=== PATIENT | female | born 1995 | race African-American/Black ===

== ENCOUNTER 2016-09-22 19:39 | Emergency (ER) | payer OTHER ==
[2016-09-22 19:49] VITALS: BP 100/65
--- NOTE | 2016-09-22 20:19 | UC ---
Complaint Female HPI - HPI Summary HPI Summary: Vulvar itching, vaginal discharge, occ cheesy odor. The itching reminds her of prior yeast infections, the discharge is like BV but she does not have the typical BV odor. Has had 4 sexual partners in the last 6 months, no recent GC/ Chlamydia testing. - History Of Current Complaint Chief Complaint: UCGU Stated Complaint: PERSONAL Time Seen by Provider: 09/22/16 20:05 Hx Obtained From: Patient Hx Last Menstrual Period: 08/26/16 ?: No Onset/Duration: Gradual Onset, Lasting Days Timing: Constant Severity Initially: Mild Severity Currently: Mild Character: Cramping Aggravating Factor(s): Nothing Associated Signs And Symptoms: Negative: Vaginal Bleeding/Discharge, Vaginal Discharge, Nausea, Vomiting(# Of Episodes =), Genital Swelling - Allergies/Home Medications Allergies/Adverse Reactions: Allergies Allergy/AdvReac Type Severity Reaction Status Date / Time almonds Allergy burning to Uncoded 09/22/16 19:50 throat and mouth nectarines Allergy burning to Uncoded 09/22/16 19:50 mouth and throat PMH/Surg Hx/FS Hx/Imm Hx Previously Healthy: Yes - Surgical History Surgical History: None - Family History Known Family History: Positive: Hypertension - Social History Alcohol Use: Occasionally Substance Use Type: None, Marijuana Smoking Status (MU): Never Smoked Tobacco Review of Systems Constitutional: Negative Skin: Negative Eyes: Negative ENT: Negative Respiratory: Negative Cardiovascular: Negative Gastrointestinal: Negative Genitourinary: Other - vaginal itching and discharge Motor: Negative Neurovascular: Negative Musculoskeletal: Negative Neurological: Negative Psychological: Negative All Other Systems Reviewed And Are Negative: Yes Physical Exam Triage Information Reviewed: Yes Appearance: Well-Appearing, No Pain Distress, Well-Nourished Vital Signs: Initial Vital Signs Temp 98.5 F 09/22/16 19:41 Pulse 95 09/22/16 19:41 Resp 15 09/22/16 19:41 BP 100/65 09/22/16 19:41 Pulse Ox 100 09/22/16 19:41 Vital Signs Reviewed: Yes Eye Exam: Normal Eyes: Positive: Conjunctiva Clear ENT Exam: Normal ENT: Positive: Normal ENT inspection, Hearing grossly normal, Pharynx normal, TMs normal Dental Exam: Normal Neck exam: Normal Neck: Positive: Supple, Nontender, No Lymphadenopathy Respiratory Exam: Normal Respiratory: Positive: Chest non-tender, Lungs clear, Normal breath sounds, No respiratory distress Cardiovascular Exam: Normal Cardiovascular: Positive: RRR, No Murmur Musculoskeletal Exam: Normal Neurological Exam: Normal Neurological: Positive: Alert Psychological Exam: Normal Skin Exam: Normal - Additional Comments Pelvic exam performed. External genitalia no lesions, erythema, or masses. White /yellow vaginal d/c in vault, cervix nontender, no drainage. Swabs obtained. Complaint Female Dx - Differential Dx/Diagnosis Provider Diagnoses: vaginitis, likely yeast Discharge - Discharge Plan Condition: Stable Disposition: HOME Prescriptions: Terconazole Vaginal [Terazol 3] 1 applic VAGINAL BEDTIME #1 kit Patient Education Materials: Vulvovaginal Candidiasis (ED) Additional Instructions: Labs pending; please call or return if you have any significant worsening.
== END 2016-09-22 20:40 | disposition home or self-care (01) ==
LOC: UCEAST 19:39
DX: N76.0 Acute vaginitis (principal)
CPT/HCPCS: 87480; 87510; 99202; G0463

== ENCOUNTER 2016-09-30 10:31 | Emergency (ER) | payer OTHER ==
[2016-09-30 12:25] VITALS: BP 102/60
--- NOTE | 2016-09-30 12:45 | UC ---
Complaint Female HPI - HPI Summary HPI Summary: This is an otherwise healthy 21 yo female who presents with c/o back pain and hematuria. Patient was seen last week for c/o vaginal itching. She was later treated for a vaginal yeast infection and testing also showed BV for which she received Flagyl, her last dose is scheduled for tomorrow. Her prior vaginal symptoms ahve resolved. She developed hematuria yesterday with R sided back pain that radiated into her leg. The lg portion of her pain has resolved but hematuria was worse this am. No associated n/v/d. No dysuria, or frequency. No abd pain. No fever. - History Of Current Complaint Chief Complaint: UCGU Stated Complaint: BLOOD IN URINE Hx Last Menstrual Period: 08/25/16 - Allergies/Home Medications Allergies/Adverse Reactions: Allergies Allergy/AdvReac Type Severity Reaction Status Date / Time almonds Allergy burning to Uncoded 09/30/16 11:32 throat and mouth nectarines Allergy burning to Uncoded 09/30/16 11:32 mouth and throat PMH/Surg Hx/FS Hx/Imm Hx Previously Healthy: Yes - Surgical History Surgical History: None - Family History Known Family History: Positive: Hypertension - Social History Alcohol Use: Occasionally Substance Use Type: None Smoking Status (MU): Never Smoked Tobacco Review of Systems Constitutional: Negative Skin: Negative Eyes: Negative ENT: Negative Respiratory: Negative Cardiovascular: Negative Gastrointestinal: Negative Genitourinary: Hematuria Motor: Negative Neurovascular: Negative Musculoskeletal: Negative Neurological: Negative Psychological: Negative All Other Systems Reviewed And Are Negative: Yes Physical Exam Triage Information Reviewed: Yes Appearance: Pain Distress - mild Vital Signs: Initial Vital Signs Temp 98.6 F 09/30/16 11:29 Pulse 74 09/30/16 11:29 Resp 18 09/30/16 11:29 BP 124/102 09/30/16 11:29 Pulse Ox 100 09/30/16 11:29 Vital Signs Reviewed: Yes Respiratory: Positive: Chest non-tender, Lungs clear. Negative: Crackles, Rhonchi, Wheezing Cardiovascular: Positive: RRR, No Murmur Abdomen Description: Positive: Nontender, CVA Tenderness (R). Negative: CVA Tenderness (L) Bowel Sounds: Positive: Present Musculoskeletal: Positive: Strength Intact Skin Exam: Normal Skin: Negative: rashes Diagnostics - Laboratory Diagnostic Studies Completed/Ordered: UA - WNL. urine preg - neg. Renal US - no hydro Complaint Female Dx - Course Course Of Treatment: This is an otherwise healthy 21 yo female who presented with c/o back pain and hematuria. Preg test neg but she is 2 weeks late for her period, which is usually regular. For this reason, a CT was avoided. No hydro noted on US. No evidence of infection on UA. Recommend empiric tx for non- obstructing ureteral stone with Flomax and prn NSAIDs - Differential Dx/Diagnosis Differential Diagnosis/HQI/PQRI: Pelvic Inflammatory Disease, , Sexually Transmitted Disease, Ureteral Stone, Urinary Tract Infection Provider Diagnoses: 1. Probable R ureteral stone Discharge - Discharge Plan Condition: Stable Disposition: HOME Prescriptions: Naproxen Sodium [Naproxen Sodium 500 MG TAB] 500 mg PO BID #20 tab Tamsulosin HCl [Flomax] 0.4 mg PO DAILY #3 cap Patient Education Materials: Kidney Stones (ED) Referrals: No Primary Care Phys,NOPCP [Primary Care Provider] - Additional Instructions: Activity: No restrictions Instructions: 1. You likely have a small kidney stone 2. Take the flomax for the next 3 days to help it pass 3. Use the naproxen as needed for pain 4. Follow up for increased pain
--- NOTE | 2016-09-30 13:42 | RAD ---
INDICATION: Intermittent right flank pain COMPARISON: None TECHNIQUE: Longitudinal and transverse scans of the right kidney were obtained. FINDINGS: Right kidney: The right kidney is normal in size and echogenicity. No renal masses, calculi, or hydronephrosis is seen. The right kidney measures 9.7 x 3.8 x 4.5 cm. Other: None IMPRESSION: NORMAL RIGHT RENAL SONOGRAM
== END 2016-09-30 14:05 | disposition home or self-care (01) ==
LOC: UCEAST 10:31
DX: R31.9 Hematuria, unspecified (principal); M54.9 Dorsalgia, unspecified; L29.2 Pruritus vulvae; Z32.02 Encounter for pregnancy test, result negative
CPT/HCPCS: 76775; 81003; 84702; 99212; G0463